=== PATIENT | male | born 1995 | race Caucasian/White ===

== ENCOUNTER 2017-01-20 14:22 | Emergency (ER) ==
[2017-01-20 14:30] VITALS: BP 130/80; TEMP 98; BMI 51.0
--- NOTE | 2017-01-20 15:00 | ED.PDOC ---
General ED Provider: Dr. DHRUV REYNOLDS Chief Complaint: Back Pain Stated Complaint: back pain Time Seen by Physician: 14:23 Mode of Arrival: Walk-In Information Source: Patient Exam Limitations: No limitations Primary Care Provider: [facility] Nursing and Triage Documentation Reviewed and Agree: Yes Musculoskeletal Complaint Exam - Back Pain Complaint/Exam Mechanism of Injury: Reports: Trauma Onset/Duration: 18 days ago after a fall at work Symptoms Are: Still present Timing: Intermittent Episodes Lasting: Minutes Initial Severity: Moderate Current Severity: Mild Location: Reports: Discrete Character: Reports: Aching Aggravating: Reports: Movements, Lifting, Bending, Walking Alleviating: Reports: Rest, Position Associated Signs and Symptoms: Denies: Swelling, Redness, Bruising, Fever, Weakness, Numbness, Tingling, Abdominal pain, Flank pain, Bladder incontinence, Bowel incontinence, Weight loss, Pain with weight bearing Related History: Reports: Similar episode AAA Risk Factors: Reports: None Cauda Equina Risk Factors: Reports: None Epidural Abcess Risk Factors: Reports: None Related Surgical History: Reports: None Focal Tenderness: No Paraspinal Muscle Tenderness: No Paraspinal Muscle Spasm: No Scoliosis: No Lordosis: No Kyphosis: No SLR Test: Right Negative, Left Negative Hip Motion Testing Pain: Right Negative, Left Negative Focal Weakness: Present: None Focal Sensory Loss: Present: None Gait: Present: Normal Differential Diagnoses: Strain, Sprain Review of Systems - Review Of Systems Constitutional: Reports: No symptoms Eyes: Reports: No symptoms Ears, Nose, Mouth, Throat: Reports: No symptoms Respiratory: Reports: No symptoms Cardiac: Reports: No symptoms GI: Reports: No symptoms : Reports: No symptoms Musculoskeletal: Reports: Back pain Skin: Reports: No symptoms Neurological: Reports: No symptoms Endocrine: Reports: No symptoms Hematologic/Lymphatic: Reports: No symptoms All Other Systems: Reviewed and Negative Past Medical History - Past Medical History Previously Healthy: Yes Endocrine: Reports: None Cardiovascular: Reports: None Respiratory: Reports: None Hematological: Reports: None Gastrointestinal: Reports: None Genitourinary: Reports: None Neuro/Psych: Reports: None Musculoskeletal: Reports: None Cancer: Reports: None - Surgical History General Surgical History: Reports: None - Family History Family History: Reports: None - Social History Smoking Status: Former smoker Hx Substance Use: No Alcohol Screening: None Physical Exam - Physical Exam Appearance: Well-appearing, No pain distress, Well-nourished Eyes: SALOMON, EOMI, Conjunctiva clear ENT: Ears normal, Nose normal, Oropharynx normal Respiratory: Airway patent, Breath sounds clear, Breath sounds equal, Respirations nonlabored Cardiovascular: RRR, Pulses normal, No rub, No murmur GI/: Soft, Nontender, No masses, Bowel sounds normal, No Organomegaly Musculoskeletal: Normal strength, ROM intact, No edema, No calf tenderness Skin: Warm, Dry, Normal color Neurological: Sensation intact, Motor intact, Reflexes intact, Cranial nerves intact, Alert, Oriented Psychiatric: Affect appropriate, Mood appropriate Critical Care Note - Critical Care Note Total Time (mins): 0 Course - Course Vital Signs: Temp Pulse Resp BP Pulse Ox 01/20/17 14:22 98 F 70 16 130/80 96 Departure - Departure Time of Disposition: 14:59 Disposition: HOME SELF-CARE Discharge Problem: Backache Instructions: Acute Low Back Pain (ED) Condition: Good Pt referred to PMD for follow-up: No Additional Instructions: Please call your Family Physician as soon as possible to schedule a follow-up appointment. Allergies/Adverse Reactions: Allergies No Known Allergies Allergy (Unverified 01/20/17 14:32) Home Medications: Ambulatory Orders Lamotrigine [Lamictal] 25 mg PO BEDTIME 01/20/17
== END 2017-01-20 15:10 | disposition home or self-care (01) ==
LOC: ED 14:22
DX: M54.9 Dorsalgia, unspecified (principal); W19.XXXA Unspecified fall, initial encounter; Y99.0 Civilian activity done for income or pay
CPT/HCPCS: 99282

== ENCOUNTER 2017-01-21 10:40 | Outpatient (CLI) ==
[2017-01-20 14:30] VITALS: BMI 51.0
--- NOTE | 2017-01-21 12:29 | DI ---
Exam: Three x-rays of the coccyx and sacrum. Comparison: None available. Reason for exam: . FINDINGS: There is an apparent pars defect at L5, S1. No acute fracture or listhesis. The pelvis appears intact. The sacrum is unremarkable. Impression: Likely pars defect at L5-S1. If clinical concern exists, further imaging may be performgela desai
== END 2017-01-21 10:41 | disposition home or self-care (01) ==
LOC: RAD 10:40
PROVIDERS: ATTEND Family Medicine
DX: M53.3 Sacrococcygeal disorders, not elsewhere classified (principal)

== ENCOUNTER 2018-06-17 07:18 | Emergency (ER) ==
[2018-06-17 07:25] VITALS: BP 143/84; TEMP 96.8; BMI 54.3
[2018-06-17] MEDS ORDERED: TORADOL IM STA (07:43)
--- NOTE | 2018-06-17 07:54 | ED.PDOC ---
General ED Provider: Dr. NARDA SMITH Chief Complaint: Extremity Pain/Injury Stated Complaint: Patient states that he has been having left shoulder pain for two days since playing video games. Pain got worse today.Took Ibuprufen yesterday but not today. Rates the pain at 9/10 Time Seen by Physician: 07:30 Mode of Arrival: Walk-In Information Source: Patient Primary Care Provider: [facility]EE Nursing and Triage Documentation Reviewed and Agree: Yes Does patient meet sepsis criteria?: No System Inflammatory Response Syndrome: Not Applicable Sepsis Protocol: For patient's 13 years and over: Temp is 96.8 and below OR 101 and greater Pulse >90 BPM Resp >20/minute Acutely Altered Mental Status Are patient's symptoms suggestive of a new infection, such as: -Pneumonia -Skin, Soft Tissue -Endocarditis -UTI -Bone, Joint Infection -Implantable Device -Acute Abdominal Infection -Wound Infection -Meningitis -Blood Stream Catheter Infection -Unknown Musculoskeletal Complaint Exam - Shoulder Pain Complaint/Exam Mechanism of Injury: Reports: No known trauma Onset/Duration: 2 DAYS Symptoms Are: Still present Timing: Constant Initial Severity: Moderate Current Severity: Severe Location: Reports: Diffuse Character: Reports: Throbbing, Spasmodic, Stiffness Alleviating: Reports: None Aggravating: Reports: Movement, Lifting, Internal rotation Related History: Reports: Dominant hand right. Denies: Similar episode, Occupational injury DVT Risk Factors: Reports: None Septic Arthritis Risk Factors: Reports: None Related Surgical History: Reports: None Tenderness: Present: AC joint Differential Diagnoses: AC Seperation, Arthritis, Closed Fracture, Sprain, Strain Quality Indicator For Non-Traumatic Chest Pain/Syncope: EKG Performed (WNL ) Review of Systems - Review Of Systems Constitutional: Reports: No symptoms Eyes: Reports: No symptoms Ears, Nose, Mouth, Throat: Reports: No symptoms Respiratory: Reports: No symptoms Cardiac: Reports: No symptoms GI: Reports: No symptoms : Reports: No symptoms Musculoskeletal: Reports: Joint pain Skin: Reports: No symptoms Neurological: Reports: Anxiety Endocrine: Reports: No symptoms Hematologic/Lymphatic: Reports: No symptoms All Other Systems: Reviewed and Negative Past Medical History - Past Medical History Previously Healthy: Yes Endocrine: Reports: None Cardiovascular: Reports: None Respiratory: Reports: None Hematological: Reports: None Gastrointestinal: Reports: GERD Genitourinary: Reports: None Neuro/Psych: Reports: Bipolar Disorder Musculoskeletal: Reports: None Cancer: Reports: None Other Pertinent Past Medical History: obesity - Surgical History General Surgical History: Reports: None - Family History Family History: Reports: None - Social History Smoking Status: Former smoker Hx Substance Use: No Alcohol Screening: None - Immunizations Tetanus Shot up to Date: No Physical Exam - Physical Exam Appearance: Ill-appearing, Obese Pain Distress: Severe Respiratory: Airway patent, Breath sounds clear, Breath sounds equal, Respirations nonlabored Cardiovascular: RRR, Pulses normal, No rub, No murmur Skin: Warm, Dry, Normal color Neurological: Alert, Oriented Psychiatric: Anxious Interpretation - Radiology Interpretation Radiology Interpretation By: ED Physician Radiology Results: Negative Exam Interpreted: Other (shoulder x ray left ) - EKG Interpretation Time of EKG #1: 07:38 Rate: Normal Rhythm: Sinus Ectopy: None [place]: NL ST Segment: Normal Interpretation: NORMAL EKG Critical Care Note - Critical Care Note Total Time (mins): 0 Course - Course Orders, Labs, Meds: Orders Category Date Time Status EKG-(ED ONLY) Stat CARDIO 06/17/18 07:43 Ordered Ketorolac Tromethamine [Toradol] MEDS 06/17/18 07:43 Stat 60 mg IM ONCE STA SHOULDER, LEFT MIN 2V Stat RADS 06/17/18 07:43 Ordered Medications Discontinued Medications Generic Name Dose Route Start Last Admin Trade Name Freq PRN Reason Stop Dose Admin Ketorolac Tromethamine 60 mg 06/17/18 07:43 Toradol IM 06/17/18 07:44 ONCE STA Vital Signs: Temp Pulse Resp BP Pulse Ox 06/17/18 07:19 96.8 F L 95 H 20 143/84 H 97 Departure - Departure Time of Disposition: 08:30 Disposition: HOME SELF-CARE Discharge Problem: Left shoulder strain Qualifiers: Encounter type: initial encounter Qualified Code(s): S46.912A - Strain of unspecified muscle, fascia and tendon at shoulder and upper arm level, left arm , initial encounter Instructions: Shoulder Sprain (ED) Condition: Stable Pt referred to PMD for follow-up: Yes IPMP verified?: No Additional Instructions: STOP PLAYING VIDEO GAMES FOLLOW UP WITH YOUR PCP IN 3 DAYS FOR PHYSICAL THERAPY REFERRAL TAKE MEDICATIONS PRESCRIBED Prescriptions: Hydrocodone Bit/Acetaminophen [Williams 5-325] 1 each PO Q6HR PRN #15 tablet PRN Reason: severe pain Ibuprofen [Motrin] 600 mg PO Q6H PRN #30 tablet PRN Reason: Analgesia Allergies/Adverse Reactions: Allergies No Known Allergies Allergy (Unverified 01/20/17 14:32) Home Medications: Ambulatory Orders Lamotrigine [Lamictal] 25 mg PO BEDTIME 01/20/17 Hydrocodone Bit/Acetaminophen [Williams 5-325] 1 each PO Q6HR PRN #15 tablet Ibuprofen [Motrin] 600 mg PO Q6H PRN #30 tablet 06/17/18 Pantoprazole Sodium [Protonix] 20 mg PO 06/17/18 Disposition Discussed With: Patient, Family
--- NOTE | 2018-06-17 08:07 | DI ---
EXAM: LEFT SHOULDER HISTORY: Shoulder pain without trauma FINDINGS: Left shoulder three-view. Bone and joint structures are within normal limits. There is no joint dislocation or fracture identified. Bone density and soft tissues are unremarkable. IMPRESSION: Within normal limits.
[2018-06-17] MEDS ORDERED: DILAUDID 1 MG/ML SYRINGE IM STA (08:14)
== END 2018-06-17 08:50 | disposition home or self-care (01) ==
LOC: ED 07:18
DX: S46.912A Strain of unspecified muscle, fascia and tendon at shoulder and upper arm level, left arm, initial encounter (principal); X50.1XXA Overexertion from prolonged static or awkward postures, initial encounter
CPT/HCPCS: 93005; 93010; 96372; 99283